=== PATIENT | male | born 1955 | race Caucasian/White ===

== ENCOUNTER 2020-08-04 19:53 | Inpatient (IN) | payer MEDICARE ==
[~2020-08-04] VITALS: Ht 188 cm; Wt 141.1 kg
[2020-08-04 20:07] VITALS: BP 163/103
[2020-08-04] MEDS ORDERED: ZPAK PO (20:14)
[2020-08-04] MEDS ORDERED: AZITHROMYCIN500 MG PO (20:14)
[2020-08-04 20:15] LABS: URINE BILIRUBIN NEGATIVE (Negative); URINE BLOOD NEGATIVE (Negative); URINE CLARITY CLEAR; URINE COLOR YELLOW; URINE GLUCOSE-RANDOM NEGATIVE (Negative); URINE KETONES NEGATIVE (Negative); URINE LEUKOCYTES-REFLEX NEGATIVE (Negative); URINE NITRITE-REFLEX NEGATIVE (Negative); URINE PROTEIN TRACE (Negative); URINE UROBILINOGEN 0.2 E.U./dl (0.2-1.0)
[2020-08-04] MEDS ORDERED: BLOOD PRESSURE PO (20:16)
[2020-08-04] MEDS ORDERED: MEDROL4 M1 PO (20:16)
[2020-08-04 20:32] LABS: HEMATOCRIT 43.7 % (42.0-52.0); HEMOGLOBIN 15.4 gm/dL (14.0-18.0); MCH 30.2 pg (26.0-34.0); MCHC 35.1 g/dL (28.0-37.0); MCV 86.1 fL (80.0-100.0); MPV 7.9 fl. (7.2-11.1); NUCLEATED RBCS 0 /100WBC; PLATELET COUNT* 160 thou/uL (150-400); RBC 5.08 mil/uL (4.50-6.00); RDW-CV 15.7 % (10.5-14.5)
[2020-08-04 20:44] LABS: INR 1.1; PROTIME 11.5 Seconds (9.20-11.50)
[2020-08-04 20:52] LABS: ALBUMIN 3.6 g/dL (3.4-5.0); CREATININE 0.7 mg/dL (0.6-1.3); MAGNESIUM 1.8 mg/dL (1.8-2.4); POTASSIUM 4.6 mmol/L (3.5-5.1); TOTAL PROTEIN 7.5 g/dL (6.4-8.2)
[2020-08-04 21:45] LABS: ABSOLUTE LYMPHOCYTES 0.5 thou/uL (0.8-5.3); ABSOLUTE MONOCYTES 0.5 thou/uL (0.0-1.2); ABSOLUTE NEUTROPHILS 7.9 thou/uL (1.6-8.1); ANISOCYTOSIS Occasional; PLATELET ESTIMATE ADEQUATE
[2020-08-04 22:25] VITALS: BP 140/85
[2020-08-04 22:49] VITALS: BP 151/82
[2020-08-04 23:00] VITALS: BP 142/82
[2020-08-04 23:31] VITALS: BP 162/101
[2020-08-05] VITALS (26 sets, daily range): BP systolic 120–173; BP diastolic 73–105
[2020-08-05 05:24] LABS: URIC ACID* 4.8 mg/dL (2.6-7.2)
[2020-08-06] VITALS (20 sets, daily range): BP systolic 116–151; BP diastolic 63–108
[2020-08-06 04:05] LABS: HEMATOCRIT 44.3 % (42.0-52.0); MCHC 33.8 g/dL (28.0-37.0); MCV 88.7 fL (80.0-100.0); MPV 7.9 fl. (7.2-11.1); RBC 4.99 mil/uL (4.50-6.00); RDW-CV 15.7 % (10.5-14.5); WBC 10.9 thou/uL (4.0-11.0)
[2020-08-06 04:26] LABS: CALCIUM 8.5 mg/dL (8.5-10.1); CREATININE 0.7 mg/dL (0.6-1.3); MAGNESIUM 1.9 mg/dL (1.8-2.4); POTASSIUM 4.1 mmol/L (3.5-5.1)
--- NOTE | 2020-08-06 10:49 | EKG ---
[place] [address] ELECTROCARDIOGRAM REPORT Name: CARLOS GALVEZ Room: [address] ADM IN M.R.#: [id number] Admission: 08/04/20 Attend Phys: Hemal Yates Discharge: Date of : 53 Date of Service: 08/04/202028 Report #: [id number] THIS REPORT FOR: //name// [facility] ED Test Date: 2020-08-04 Test Time: 20:29:02 Pat Name: CARLOS GALVEZ Department: Room: [facility] Gender: M Head Operator Sulfide: [place] : 1955 Requested By: Francisca Hassan Order Number: [id number] MD: Maurisio Jose Measurements Intervals [place] Rate: 99 P: NC: QRS: 71 QRSD: 111 T: -1 QT: 398 QTc: 511 Interpretive Statements Atrial fibrillation with pvc RSR' in V1 or V2, right VCD or RVH Borderline T abnormalities, inferior leads Prolonged QT interval No previous ECG available for comparison Electronically Signed On 08-06-2020 10:49:26 CDT by Maurisio Jose [email or web address] <ELECTRONICALLY SIGNED> By: Maurisio Jose MD, [facility] 08/06/20 1049 28 28 Maurisio Jose MD, [facility] /EPI
--- NOTE | 2020-08-06 15:09 | 2DMMODE ---
[place] [address] 2 D/M-MODE ECHOCARDIOGRAM Name: CARLOS GALVEZ NATA Room: [address] ADM IN M.Khadra.#: [id number] Admission: 08/04/20 Attend Phys: Hemal Yates Discharge: Date of : 53 Date of Service: 08/06/20 1509 Report #: [id number] THIS REPORT FOR: cc: FAM - No family physician/PCP FAM - No family physician/PCP Maurisio Jose MD [facility] ~ APPROVED REPORT Study performed: 08/06/2020 12:46:36 EXAM: Comprehensive 2D, Doppler, and color-flow Echocardiogram Patient Location: Bedside BSA: 2.62 HR: 100 bpm BP: 127/70 mmHg Other Information Study Quality: Technically Limited Indications Atrial Fibrillation Dyspnea 2D Dimensions IVSd: 17.61 (7-11mm) LVOT Diam: 22.39 (18-24mm) LVDd: 52.44 mm PWd: 14.97 (7-11mm) Ascending Ao: 37.18 (22-36mm) LVDs: 35.75 (25-40mm) Aortic Root: 36.26 mm Volumes Left Atrial Volume (Systole) LA ESV Index: 33.70 mL/m2 Aortic Valve AoV Peak Carlo.: 1.11 m/s AO Peak Gr.: 4.90 mmHg LVOT Max P.55 mmHg AO Mean Gr.: 2.96 mmHg LVOT Mean P.19 mmHg LVOT Max V: 0.80 m/s AO V2 VTI: 20.73 cm LVOT Mean V: 0.49 m/s SANTANA (VTI): 2.38 cm2 LVOT V1 VTI: 12.50 [place] [address] 2 D/M-MODE ECHOCARDIOGRAM Name: CARLOS GALVEZ Room: [address] IN M.R.#: [id number] Admission: 08/04/20 Attend Phys: Hemal Yates Discharge: Date of : 53 Date of Service: 08/06/20 1509 Report #: [id number] E/A Ratio: 2.04 MV Decel. Time: 174.04 ms MV E Max Carlo.: 0.74 m/s MV PHT: 50.47 ms MVA (PHT): 4.36 cm2 TDI E/Lateral E': 5.29 E/Medial E': 7.40 Medial E' Carlo.: 0.10 m/s Lateral E' Carlo.: 0.14 m/s Pulmonary Valve PV Peak Carlo.: 0.85 m/s PV Peak Gr.: 2.86 mmHg Tricuspid Valve RAP Estimate: 5.00 mmHg TR Peak Gr.: 28.14 mmHg RVSP: 33.70 mmHg PA Pressure: 33.70 mmHg Left Ventricle The left ventricle is normal size. endocardium was not well visualized making segmental wall motion analysis difficult Mild concentric left ventricular hypertrophy. Left ventricular systolic function is borderline. Right Ventricle The right ventricle is normal size. The right ventricular systolic function is normal. Atria Left atrium is mildly dilated. Interatrial septum not well visualized. Right atrium is dilated. Aortic Valve The aortic valve is normal in structure. No aortic regurgitation is present. There is no aortic valvular stenosis. Mitral Valve The mitral valve is normal in structure. There is no mitral valve regurgitation noted. No evidence of mitral valve stenosis. Tricuspid Valve The tricuspid valve is normal in structure. Trace tricuspid regurgitation[place] [address] 2 D/M-MODE ECHOCARDIOGRAM Name: CARLOS GALVEZ NATA Room: [address]#: [id number] Admission: 08/04/20 Attend Phys: Hemal Yates Discharge: Date of : 53 Date of Service: 08/06/20 1509 Report #: [id number] Pulmonic valve is not well visualized. There is no pulmonic valvular regurgitation. Great Vessels The aortic root is normal in size. IVC is not visualized. Pericardium There is no pericardial effusion. <Conclusion> Mild concentric left ventricular hypertrophy. Left ventricular systolic function is borderline. Left atrium is mildly dilated. <ELECTRONICALLY SIGNED> By: Maurisio Jose MD, FACC 08/06/20 1509 1509 150 Maurisio Jose MD, FACC /INF
--- NOTE | 2020-08-06 15:53 | CON ---
[address] [address] CONSULTATION Name: CARLOS GALVEZ Room: [address] ADM IN M.R.#: [id number] Admission: 08/04/20 Attend Phys: Hemal Noriega, Discharge: Date of : 53 Report #: [id number] THIS REPORT FOR: //name// cc: RAFAEL Joy family physician/PCP RAFAEL Joy family physician/PCP ~ THIS REPORT FOR: //name// CC: David HALL physician/PCP Hemal Noriega DATE OF SERVICE: 08/06/2020 CARDIOLOGY CONSULTATION HISTORY OF PRESENT ILLNESS: The patient is a 64-year-old single white male who I was asked to see in the hospital today after he was noted to be in atrial fibrillation. The patient has never been here to [place] before. There were no old records. There are no family members available. Currently, the patient is drowsy and falls asleep easily. The history is obtained from the patient. He apparently has a history of COPD. He denies a history of heart problems. He came to the Emergency Room two days ago after being short of breath. He was given antibiotics by his primary care physician. His legs have been swollen. He has been coughing. Denied any fever. When he came to the Emergency Room, he was noted to be in atrial fibrillation. Cardiology consultation requested. He denies any history of chest pain, palpitations, syncope. PAST MEDICAL AND SURGICAL HISTORY: He has had no surgical procedures. He has a history of hypertension, COPD. MEDICATIONS: Include a blood pressure pill, antibiotics. He has been on steroids. ALLERGIES: HE HAS AN ALLERGY TO PENICILLIN. FAMILY HISTORY: Cannot be obtained. SOCIAL HISTORY: He is single, lives by himself in [place], [place]. Retired construction accountant. He used to smoke a pack of cigarettes a day, now smokes half pack. No alcohol abuse. REVIEW OF SYSTEMS: He has had no history of stroke, liver disease, kidney disease, cancer, psychiatric illness, chronic skin condition. PHYSICAL EXAMINATION: GENERAL: Reveals an obese middle-aged male, lying [place]. [place] [address] CONSULTATION Name: CARLOS GALVEZ Room: [address] IN [facility]#: [id number] Admission: 08/04/20 Attend Phys: Hemal Noriega, Discharge: Date of : 53 Report #: [id number] distress. VITAL SIGNS: He had a blood pressure of 130/80, pulse is 90. He was afebrile. HEENT: He was anicteric. Conjunctivae are pink. Mucous membranes appear dry. NECK: Veins difficult to assess due to obesity. CHEST: Reveals expiratory wheezes. CARDIAC: Irregular rhythm. No significant murmurs. ABDOMEN: Obese. EXTREMITIES: Had trace edema. Dorsalis pedis pulse 1+. SKIN: Cool and dry. NEUROLOGIC: Nonfocal. He was drowsy. IMAGING: ECG shows atrial fibrillation, occasional ventricular premature complex, incomplete right bundle-branch block. His workup in the Emergency Room; yesterday, he had a portable chest x-ray showed normal heart size and clear lung lokce. LABORATORY DATA: Sodium 113, potassium 4.1. His creatinine is 0.7. Liver function studies were normal. Troponin 0.06. BNP 1374. TSH 2.3. White blood cell count 10.9, hemoglobin 15. COVID stat test nondetected. Urinalysis, trace protein. IMPRESSION AND RECOMMENDATIONS: 1. Atrial fibrillation. Onset unclear. Rate appears controlled. I would not recommend attempts at cardioversion. If the patient develops rapid rate, I would consider diltiazem to slow the ventricular response rate. I would consider anticoagulation. 2. Hyponatremia. Recommend sodium restriction. 3. Chronic obstructive pulmonary disease. 4. Obesity. <ELECTRONICALLY SIGNED> By: Maurisio Jose MD, FACC 08/06/20 1553 0831 [id number] Jose MD, FACC /nt
[2020-08-07] VITALS (20 sets, daily range): BP systolic 107–151; BP diastolic 56–92
[2020-08-07 06:13] LABS: CALCIUM 8.3 mg/dL (8.5-10.1); CREATININE 0.8 mg/dL (0.6-1.3); POTASSIUM 4.7 mmol/L (3.5-5.1)
[2020-08-07 06:15] LABS: HEMATOCRIT 41.9 % (42.0-52.0); HEMOGLOBIN 14.3 gm/dL (14.0-18.0); MCH 30.4 pg (26.0-34.0); MCHC 34.3 g/dL (28.0-37.0); MCV 88.8 fL (80.0-100.0); RBC 4.72 mil/uL (4.50-6.00); RDW-CV 15.8 % (10.5-14.5); WBC 9.4 thou/uL (4.0-11.0)
[2020-08-07 06:25] LABS: CHOLESTEROL 144 mg/dL (<200); HDL CHOLESTEROL 86 mg/dL (>40); LDL CHOLESTEROL 49 mg/dL (<100); TC:HDL 1.7 Ratio (Not establshd); TRIGLYCERIDE 46 mg/dL (<150); VLDL 9 mg/dL (<40)
[2020-08-07 06:30] LABS: SERUM ASSESSMENT Clear
[2020-08-08 00:01] VITALS: BP 126/63
[2020-08-08 04:00] VITALS: BP 137/78
[2020-08-08 08:00] VITALS: BP 136/70
[2020-08-08 09:50] LABS: ABSOLUTE EOSINOPHILS 0.1 thou/uL (0.0-0.7); ABSOLUTE LYMPHOCYTES 0.7 thou/uL (0.8-5.3); ABSOLUTE MONOCYTES 0.8 thou/uL (0.0-1.2); ABSOLUTE NEUTROPHILS 6.1 thou/uL (1.6-8.1); BASOPHILS 0.4 %; EOSINOPHILS 1.8 %; HEMATOCRIT 41.6 % (42.0-52.0); HEMOGLOBIN 14.1 gm/dL (14.0-18.0); LYMPHOCYTES 9.4 %; MCH 29.9 pg (26.0-34.0); MCHC 33.7 g/dL (28.0-37.0); MCV 88.5 fL (80.0-100.0); MONOCYTES 9.8 %; MPV 7.8 fl. (7.2-11.1); NUCLEATED RBCS 0 /100WBC; PLATELET COUNT* 136 thou/uL (150-400); POLYS 78.6 %; RBC 4.71 mil/uL (4.50-6.00); RDW-CV 16.6 % (10.5-14.5); WBC 7.8 thou/uL (4.0-11.0)
--- NOTE | 2020-08-08 09:54 | CON ---
[address] [address] CONSULTATION Name: CARLOS GALVEZ Room: [address] IN M.R.#: [id number] Admission: 08/04/20 Attend Phys: Hemal Noriega, Discharge: Date of : 53 Report #: [id number] THIS REPORT FOR: //name// cc: RAFAEL Joy family physician/PCP RAFAEL Joy family physician/PCP ~ THIS REPORT FOR: //name// CC: RAFAEL physician/PCP Hemal Noriega DATE OF SERVICE: 08/05/2020 NEPHROLOGY CONSULTATION CONSULTING PHYSICIAN: Dr. Hemal Noriega. REASON FOR ADMISSION: Shortness of breath for 6 weeks, loss of appetite, history of chronic obstructive pulmonary disease. REASON FOR NEPHROLOGY CONSULTATION: Hyponatremia. HISTORY OF PRESENT ILLNESS: This is a 64-year-old male who is morbidly obese, has a history of chronic obstructive pulmonary disease. He says for the past few days he has not been eating and drinking well and although he does like to drink some apple and cranberry juice, but definitely not eating well and he was found to have abnormal labs in the clinic in [place]. The patient1 presented to that clinic because he was having shortness of breath for a few days and was prescribed azithromycin 2 days ago. He has been having swelling in his legs also for the past few days. Past medical history also includes hypertension, he takes 1 medication for his blood pressure, but he does not know the name. He reports no NSAID use. He does not report any urinary problems. Bladder scan was checked and showed greater than 300 mL of urine, but when Saab's catheter was placed, 600 mL of urine came out right away and 1500 mL of urine came out just overnight. Sodium was 108 on admission over here and 109 on repeat check and the patient has been started on fluids since then. He reports that back in spring he did have low sodium. ALLERGIES: PENICILLINS. PAST MEDICAL AND SURGICAL HISTORY: Includes COPD and hypertension. REVIEW OF SYSTEMS: As mentioned in history of present illness, otherwise 10-point review of systems are negative. HOME MEDICATIONS: Include Zithromax , blood pressure medication we do not know the name of, [place] [address] CONSULTATION Name: CARLOS GALVEZ Room: [address] IN [facility].#: [id number] Admission: 08/04/20 Attend Phys: Hemal Noriega, Discharge: Date of : 53 Report #: [id number] FAMILY HISTORY: Reviewed and noncontributory in this situation. SOCIAL HISTORY: No alcohol or smoking reported right now. No recreational drug use reported right now. PHYSICAL EXAMINATION: VITAL SIGNS: Blood pressure is 136/95, he is afebrile, pulse rate is 82, respiratory rate is 17, and pulse ox 97% on 2 liters oxygen by nasal cannula. GENERAL: He is morbidly obese. Otherwise, he is awake, alert, and oriented x 3. His face is flushed. HEAD AND EYES: Atraumatic and normocephalic. Conjunctivae normal. EARS, NOSE, AND THROAT: Normal ears and nose. Mucous membranes are dry. NECK: There is no JVD. CHEST: Bilaterally clear to auscultation anteriorly. No crackles or wheezing. CARDIOVASCULAR: S1, S2 normal. No murmurs. ABDOMEN: Soft, nondistended, obese, and nontender. EXTREMITIES: Lower extremities, there is about 2+ lower extremity edema. GENITOURINARY: He has a Saab's catheter in place, which is draining clear urine. NEUROLOGIC: Grossly intact. PSYCHIATRIC: Mood and affect seem to be normal. LABORATORY DATA: WBC 9.2, hemoglobin 13.4, and platelet count is 160. Sodium is 109 most recently, creatinine was 0.7, chloride was 74, and CO2 was 32. Uric acid was 4.8. Other labs were reviewed. IMAGING: Chest x-ray was reviewed. ASSESSMENT: 1. Acute hyponatremia. His baseline sodium is not known, but he has a history of hyponatremia back in spring. Sodium on presentation was 108. He did have lower extremity swelling when he presented, but he was retaining urine and I think that is the main reason why his sodium was low. We also need to find out what blood pressure medication he was taking at home and make sure it was not a thiazide diuretic. Urine osmolality is pending and urine sodium was 70. 2. High CO2, likely metabolic alkalosis, but he could be having some underlying respiratory acidosis and some compensating metabolic alkalosis as well. 3. Hypochloremia. 4. Urinary retention, 600 mL of urine came out after Saab's catheter placement, likely benign prostatic hypertrophy. 5. Hypertension. Blood pressure seems to be controlled, it was high when he first came in. We need to find out which blood pressure medication he was taking. 6. Chronic obstructive pulmonary disease, he was recently short of breath, which could have been a chronic obstructive pulmonary disease exacerbation. We [address] [address] CONSULTATION Name: CARLOS GALVEZ Room: [address] IN M.R.#: [id number] Admission: 08/04/20 Attend Phys: Hemal CristobalBrian Hari, Discharge: Date of : 53 Report #: [id number] will defer to primary team for further management of that. PLAN: 1. He has been producing urine after Saab's catheter placement, urine sodium was towards the higher side 70, but I am not sure if he was taking any thiazide diuretic or Lasix at home. I will go ahead and put him on fluids. His chest sounds clear. We will put him on normal saline at 50 mL an hour and sodium is to be checked every 4 hours. Avoid rapid correction of sodium more than 6-8 mEq in 24 hour time span. Monitoring parameters will explain to the patient's nurse. We will add Flomax to help with urinary retention. 2. TSH and cortisol are pending. 3. Fluid restriction of 1 liter a day. 4. Avoid any NSAIDs . Thank you for this consultation. Strict I's and O's on him and we will continue to follow with you. Discussed with the patient's nurse and the patient in detail. <ELECTRONICALLY SIGNED> By: Najma Ac MD 08/08/20 0954 0730 [id number] Ac MD /nt
[2020-08-08 10:33] LABS: ALBUMIN 3.1 g/dL (3.4-5.0); ALKALINE PHOSPHATASE 65 U/L (46-116); ANION GAP < 0 mmol/L (7-16); BUN 14 mg/dL (7-18); CALCIUM 8.3 mg/dL (8.5-10.1); CHLORIDE 88 mmol/L (98-107); CO2 35 mmol/L (21-32); CREATININE 0.7 mg/dL (0.6-1.3); GLUCOSE 113 mg/dL (70-99); POTASSIUM 4.7 mmol/L (3.5-5.1); SGOT 17 U/L (15-37); SGPT 24 U/L (30-65); SODIUM 122 mmol/L (136-145); TOTAL BILIRUBIN 0.9 mg/dL (<0.1-1.0); TOTAL PROTEIN 6.5 g/dL (6.4-8.2)
[2020-08-08 12:01] VITALS: BP 137/103
[2020-08-08 16:00] VITALS: BP 137/72
[2020-08-08 20:00] VITALS: BP 140/76
[2020-08-09 05:41] LABS: ABSOLUTE EOSINOPHILS 0.2 thou/uL (0.0-0.7); ABSOLUTE LYMPHOCYTES 0.7 thou/uL (0.8-5.3); ABSOLUTE NEUTROPHILS 6.1 thou/uL (1.6-8.1); BASOPHILS 0.4 %; EOSINOPHILS 2.1 %; HEMOGLOBIN 13.9 gm/dL (14.0-18.0); LYMPHOCYTES 9.1 %; MCH 29.7 pg (26.0-34.0); MCHC 33.1 g/dL (28.0-37.0); MCV 89.7 fL (80.0-100.0); MONOCYTES 12.7 %; MPV 8.3 fl. (7.2-11.1); NUCLEATED RBCS 0 /100WBC; PLATELET COUNT* 145 thou/uL (150-400); POLYS 75.7 %; RBC 4.69 mil/uL (4.50-6.00); RDW-CV 16.5 % (10.5-14.5); WBC 8.1 thou/uL (4.0-11.0)
[2020-08-09 05:56] LABS: ALBUMIN 3.1 g/dL (3.4-5.0); CALCIUM 8.6 mg/dL (8.5-10.1); CREATININE 0.8 mg/dL (0.6-1.3); POTASSIUM 4.3 mmol/L (3.5-5.1); TOTAL BILIRUBIN 0.9 mg/dL (<0.1-1.0); TOTAL PROTEIN 6.4 g/dL (6.4-8.2)
[2020-08-09 07:53] VITALS: BP 149/77
[2020-08-09 12:31] VITALS: BP 137/83
[2020-08-09 16:47] VITALS: BP 154/98
[2020-08-09 21:14] VITALS: BP 179/101
[2020-08-10 00:01] VITALS: BP 149/88
[2020-08-10 02:58] LABS: ABSOLUTE BASOPHILS 0.1 thou/uL (0.0-0.2); ABSOLUTE EOSINOPHILS 0.3 thou/uL (0.0-0.7); ABSOLUTE MONOCYTES 1.3 thou/uL (0.0-1.2); ABSOLUTE NEUTROPHILS 7.1 thou/uL (1.6-8.1); BASOPHILS 0.6 %; EOSINOPHILS 3.3 %; HEMOGLOBIN 13.9 gm/dL (14.0-18.0); LYMPHOCYTES 10.6 %; MCH 29.9 pg (26.0-34.0); MCHC 33.1 g/dL (28.0-37.0); MCV 90.3 fL (80.0-100.0); MONOCYTES 13.2 %; MPV 7.7 fl. (7.2-11.1); NUCLEATED RBCS 0 /100WBC; PLATELET COUNT* 161 thou/uL (150-400); POLYS 72.3 %; RBC 4.65 mil/uL (4.50-6.00); RDW-CV 16.8 % (10.5-14.5); WBC 9.9 thou/uL (4.0-11.0)
[2020-08-10 03:14] LABS: CALCIUM 8.8 mg/dL (8.5-10.1); POTASSIUM 4.7 mmol/L (3.5-5.1); TOTAL BILIRUBIN 0.9 mg/dL (<0.1-1.0); TOTAL PROTEIN 6.5 g/dL (6.4-8.2)
[2020-08-10 04:00] VITALS: BP 151/94
[2020-08-10 08:00] VITALS: BP 130/82
[2020-08-10] MEDS ORDERED: FLOMAX0.4 MG PO (13:19)
[2020-08-10] MEDS ORDERED: LASIX 40 MG TAB40 M2 PO (13:19)
[2020-08-10] MEDS ORDERED: CARDIZEM CD120 MG PO (13:19)
[2020-08-10] MEDS ORDERED: ELIQUIS5 MG PO (13:19)
[2020-08-10] MEDS ORDERED: POTASSIUM20 PO (13:30)
[2020-08-10] MEDS ORDERED: LASIX 40 MG TAB40 MG PO (13:30)
[2020-08-10 14:40] VITALS: BP 130/82
[2020-08-10 17:25] VITALS: BP 130/82
== END 2020-08-10 16:00 | disposition home or self-care (01) | DRG 644 ==
LOC: M.ERS 19:53 → M.ICU 22:00 → M.TBA-ER 22:00 → M.ICU 22:00 → M.2W 08-10 14:04 → M.ICU 08-10 14:07
PROVIDERS: Emergency Medicine; Internal Medicine; Internal Medicine Cardiovascular Disease; Internal Medicine Nephrology; ADMIT Family Medicine; ATTEND Family Medicine
DX: E22.2 Syndrome of inappropriate secretion of antidiuretic hormone (principal); I16.1 Hypertensive emergency; J44.1 Chronic obstructive pulmonary disease with (acute) exacerbation; I10 Essential (primary) hypertension; Z20.828 Contact with and (suspected) exposure to other viral communicable diseases; E87.8 Other disorders of electrolyte and fluid balance, not elsewhere classified; R33.9 Retention of urine, unspecified; I48.91 Unspecified atrial fibrillation; F17.210 Nicotine dependence, cigarettes, uncomplicated; E66.01 Morbid (severe) obesity due to excess calories; G47.33 Obstructive sleep apnea (adult) (pediatric); E11.9 Type 2 diabetes mellitus without complications; T50.2X5A Adverse effect of carbonic-anhydrase inhibitors, benzothiadiazides and other diuretics, initial encounter; Z88.0 Allergy status to penicillin; Y92.89 Other specified places as the place of occurrence of the external cause; Z68.39 Body mass index [BMI] 39.0-39.9, adult; Z79.899 Other long term (current) drug therapy; Z28.21 Immunization not carried out because of patient refusal